=== PATIENT | male | born 1990 | race Caucasian/White ===

== ENCOUNTER 2017-05-08 11:16 | Emergency (ER) | payer BC ==
[~2017-05-08] VITALS: Ht 190.5 cm; Wt 77.1 kg
--- NOTE | 2017-05-08 11:20 | NUR ---
BIB SELF WOUND CHECK ON RFA, SUTURE INTACT, SWELLING, NAD NOTED, VSS, WAITING FOR MD EVAL.
--- NOTE | 2017-05-08 12:35 | NUR ---
pain meds given as ordered
--- NOTE | 2017-05-08 12:39 | NUR ---
Patient discharged to home in stable condition with his father. Written and verbal after care instructions given. Patient verbalizes understanding of instruction.
[2017-05-08 12:42] VITALS: BP 130/80
== END 2017-05-08 12:42 | disposition home or self-care (01) ==
LOC: ER 11:19
DX: Z48.00 Encounter for change or removal of nonsurgical wound dressing (principal)
CPT/HCPCS: A4606; A6402; Z7610